=== PATIENT | male | born 1970 | race Caucasian/White ===

== ENCOUNTER 2020-08-31 14:55 | Emergency (ER) | payer SELFPAY ==
--- NOTE | ~2020-08-31 | XR_ITS ---
XR chest 2V DATE: 08/31/2020 15:44 INDICATION: Generalized chest pain TECHNIQUE: PA and lateral views COMPARISON: None FINDINGS: Normal heart size. No hilar or mediastinal enlargement. No pulmonary infiltrate or consolid ation, pleural effusion or pulmonary vascular congestion or pneumothorax. IMPRESSION: No active cardiopulmonary disease Reviewed, dictated and finalized at location A. OGEOLOGIST
--- NOTE | 2020-08-31 14:58 | ECG_ITS ---
Measurements Intervals [place] Rate: 84 P: 32 ND: 160 QRS: 103 QRSD: 134 T: 47 QT: 384 QTc: 456 Interpretive Statements SINUS RHYTHM RIGHT AXIS DEVIATION RIGHT BUNDLE BRANCH BLOCK ABNORMAL ECG Electronically Signed On 08-31-2020 15:27:48 [employer] by Moisés Lopez D.O.
[2020-08-31 15:03] VITALS: BP 128/83; PULSE 87; RESP 20; TEMP 36.2; O2SAT 98
[2020-08-31 15:15] LABS: Basophils Absolute Auto 0.1 K/mm3 (0.0-0.1); Basophils Percent Auto 0.9 % (0.2-1.2); Eosinophils Absolute Auto 0.1 K/mm3 (0-0.3); Eosinophils Percent Auto 1.4 % (0-4.4); Hematocrit 47.7 % (42.0-52.0); Hemoglobin 16.2 g/dL (14.0-18.0); Immature Granulocyte Absolute 0.03 K/mm3 (0.00-0.031); Immature Granulocyte Percent A 0.4 % (0-0.5); Lymphocytes Absolute Auto 1.42 K/mm3 (0.9-3.2); Lymphocytes Percent Auto 18.7 % (18.3-44.2); Mean Corpuscular Hemoglobin 30.6 pg (26-34); Mean Corpuscular Volume 90.2 fl (80-100); Mean Platelet Volume 9.7 fl (7.4-10.4); Monocytes Absolute Auto 0.6 K/mm3 (0.1-0.6); Monocytes Percent Auto 7.5 % (2.6-8.5); Neutrophils Absolute Auto 5.4 K/mm3 (1.3-6.7); Neutrophils Percent Auto 71.1 % (45.5-73.1); Platelet Count Result 209 k/mm3 (150-375); Red Blood Count 5.29 M/mm3 (4.6-6.20); Red Cell Distribution Width 13.6 % (11.5-14.5); White Blood Count 7.6 K/mm3 (4.5-10.0)
[2020-08-31 15:25] LABS: Prothrombin Time 13.8 Seconds (11.1-14.7)
[2020-08-31 15:26] LABS: Partial Thromboplastin Time 39.7 SECONDS (22.3-36.8)
[2020-08-31 15:28] LABS: Anion Gap 7 mmol/L (8-16); Blood Urea Nitrogen 14 mg/dL (9-20); Calcium 9.3 mg/dL (8.4-10.2); Carbon Dioxide 27 mmol/L (22-30); Chloride 103 mmol/L (98-107); Estimated CRCL calculation 125 ml/min; Estimated Glomerular Filt Rate > 60; Glucose 91 mg/dL (75-110); Potassium 3.9 mmol/L (3.4-5.0); Sodium 137 mmol/L (137-145)
[2020-08-31 15:40] LABS: Troponin I < 0.012 ng/mL (0.000-0.034)
[2020-08-31 18:00] VITALS: O2SAT 96
[2020-08-31] MEDS: KETOROLAC 30 MG/ML VIAL (*BKC) IV PUSH (18:02)
[2020-08-31] MEDS: ASPIRIN 81 MG CHEWABLE TABLET 324 MG PO (18:02)
[2020-08-31 18:41] LABS: D Dimer 0.27 ug/mL (<0.48)
[2020-08-31 18:43] LABS: Troponin I < 0.012 ng/mL (0.000-0.034)
--- NOTE | 2020-08-31 20:00 | ED.CHESTPAIN ---
HPI - Chest Pain General Chief Complaint: Chest Pain Stated Complaint: chest pain Time Seen by Provider: 08/31/20 17:02 History of Present Illness HPI narrative: Patient is a 50-year-old male who presents ER with chest pain. Began yesterday evening progressively evening. Woke up this morning and had persistent discomfort to center left side. Worse with palpation. No shortness of breath or pain with deep breath. No pain with exertion. No history of coronary disease. 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 He is originally from [place]. Related Data Home Medications Medication Instructions Recorded Confirmed albuterol sulfate INHALATION 08/31/20 Allergies Allergy/AdvReac Type Severity Reaction Status Date / Time codeine Allergy Severe Difficulty Verified 08/31/20 19:52 Breathing Penicillins Allergy Mild Itching Verified 08/31/20 19:52 Review of Systems Review of Systems: All systems reviewed & are unremarkable except as noted in HPI and below Constitutional: Constitutional: Denies chills, Denies fever(s) and Denies weakness ENT: Denies nasal congestion and Denies sore throat Cardiovascular: Cardiovascular: Reports chest pain, Denies rapid heart rate and Denies radiating jaw, neck or arm pain Respiratory: Respiratory: Denies cough, Denies dyspnea and Denies wheezing Gastrointestinal: Gastrointestinal: Denies abdominal pain, Denies nausea and Denies vomiting PMFSH Past Medical History Medical History (Updated 08/31/20 @ 20:06 by Emmanuel Ag MD) COPD (chronic obstructive pulmonary disease) Surgical History Surgical History (Updated 08/31/20 @ 20:01 by Emmanuel Ag MD) History of carpal tunnel repair Social History Social History (Updated 08/31/20 @ 20:01 by Emmanuel gA MD) Smoking status: Current every day smoker Exam Narrative: Exam Narrative: GENERAL: Well-appearing, well-nourished, and in no acute distress. HEAD: Normocephalic, atraumatic. CHEST: Clear to auscultation. No respiratory distress. Reproducible central chest discomfort with light palpation to the medial aspect of the left pectoralis. HEART: Regular rate and rhythm. Normal peripheral pulses. ABDOMEN: Soft, nontender, nondistended. EXTREMITIES: Normal range of motion. No edema. SKIN: Warm, dry, no rash. NEURO: Alert and oriented x3. PSYCH: Normal mood and affect. Course Course Emergency Course: D-dimer negative. Troponins negative x2. Discharge home. Pain control with Toradol. Vital Signs Vital signs: Vital Signs Temperature 97.2 F L 08/31/20 15:03 Pulse Rate 87 08/31/20 15:03 Respiratory Rate 20 08/31/20 15:03 Blood Pressure 128/83 08/31/20 15:03 Pulse Oximetry 98 08/31/20 15:03 Temperature 97.2 F L 08/31/20 15:03 Pulse Rate 87 08/31/20 15:03 Respiratory Rate 20 08/31/20 15:03 Blood Pressure 128/83 08/31/20 15:03 Pulse Oximetry 96 08/31/20 18:00 MDM - Chest Pain Lab Data Result diagrams: 08/31/20 15:09 08/31/20 15:09 Labs: Lab Results 08/31/20 08/31/20 08/31/20 Range/Units 15:09 15:09 15:09 WBC 7.6 (4.5-10.0) K/mm3 RBC 5.29 (4.6-6.20) M/mm3 Hgb 16.2 (14.0-18.0) g/dL Hct 47.7 (42.0-52.0) % MCV 90.2 (80-100) fl MCH 30.6 (26-34) pg MCHC 34.0 (32-36) g/dl RDW 13.6 (11.5-14.5) % Plt Count 209 (150-375) k/mm3 MPV 9.7 (7.4-10.4) fl Immature Gran % (Auto) 0.4 (0-0.5) % Neut % (Auto) 71.1 (45.5-73.1) % Lymph % (Auto) 18.7 (18.3-44.2) % [place] % (Auto) 7.5 (2.6-8.5) % Eos % (Auto) 1.4 (0-4.4) % Baso % (Auto) 0.9 (0.2-1.2) % Lymph # (Auto) 1.42 (0.9-3.2) K/mm3 [place] # (Auto) 0.6 (0.1-0.6) K/mm3 Eos # (Auto) 0.1 (0-0.3) K/mm3 Baso # (Auto) 0.1 (0.0-0.1) K/mm3 Abs Immat Gran (auto) 0.03 (0.00-0.031) K/mm3 Absolute Neuts (auto) 5.4 (1.3-6.7) K/mm3 Absolute Nucleated RBC
[2020-08-31 20:50] VITALS: BP 127/65; PULSE 74; RESP 16; O2SAT 98
== END 2020-08-31 20:50 | disposition home or self-care (01) ==
PROVIDERS: Emergency Provider Emergency Medicine
DX: R07.89 Other chest pain (principal); J44.9 Chronic obstructive pulmonary disease, unspecified; F17.200 Nicotine dependence, unspecified, uncomplicated; I45.10 Unspecified right bundle-branch block
CPT/HCPCS: 36415; 71046; 80048; 84484; 85025; 85380; 85610; 85730; 93005; 96374; 99284; A9270; J1885